=== PATIENT | female | born 1945 | race Caucasian/White ===

== ENCOUNTER → 2018-07-17 10:05 | Outpatient (CLI) | payer OTHER, SELFPAY ==
--- NOTE | 2018-07-17 | DI.CT.S_ITS ---
PROCEDURE: CT SINUS SCREEN WO CON INDICATIONS: SINUSITIS TECHNIQUE: Noncontrast 3.0 mm axial images acquired from the frontal sinuses to the mid-sella, with coronal and sagittal reformats. For radiation dose reduction, the following was used: automated exposure control, adjustment of mA and/or kV according to patient size. COMPARISON: None. FINDINGS: Image quality: Excellent. Sinuses: Trace sphenoid mucosal thickening. Remaining sinuses are clear. Ostiomeatal Complexes: Ostiomeatal complexes are patent. Minimal narrowing on the right secondary to nasal septal deviation. Miscellaneous: Visualized intra-orbital contents are normal. No peterson bullosa. There is a paradoxical left middle turbinate. Mild rightward nasal septal deviation. IMPRESSION: 1. Trace sphenoid mucosal thickening. Ostiomeatal complexes are patent. Dictated by: Winnie Carmona M.D. on 07/17/2018 at 11:00 Approved by: Winnie Carmona M.D. on 07/17/2018 at 11:07
== END ==
PROVIDERS: PCP Family Medicine; Visit Provider Family Medicine
DX: J32.9 Chronic sinusitis, unspecified (principal); J34.2 Deviated nasal septum
CPT/HCPCS: 70486